=== PATIENT | female | born 1970 | race Caucasian/White ===

== ENCOUNTER → 2018-02-11 | Outpatient (CLI) | payer OTHER ==
[~2018-02-11] MED LIST: ABAC300; ARIPIPRAZOLE 5 MG; BENZ1 PO; BENZ2; BENZ2 PO; CEPH500 PO; HALO5; HALO5 PO; OLAN2.5 PO; OLAN20 MM; OLAN5 PO; PROLIXIN; RXHYDACE PO; SULTRIDS PO; SULTRIEL PO
[2018-02-11 12:32] LABS: U Amphetamine Screen DETECTED; U Barbituate Screen Not Detected; U Methamphetamine Screen DETECTED
[2018-02-11 12:33] LABS: U Benzodiazapine Screen Not Detected; U Buprenorphine Screen Not Detected; U Cannabinoids Screen DETECTED; U Cocaine Screen Not Detected; U Methadone Screen Not Detected; U Opiates Screen Not Detected; U Oxycodone Screen Not Detected; U Phencyclidine Screen Not Detected; U Propoxyphene Screen Not Detected
== END ==
LOC: LAB SHORT 10:55 → LAB 10:55
PROVIDERS: Registered Nurse
DX: Z51.81 Encounter for therapeutic drug level monitoring (principal); F15.10 Other stimulant abuse, uncomplicated; Z79.899 Other long term (current) drug therapy